=== PATIENT | male | born 1960 | race Caucasian/White ===

== ENCOUNTER 2022-09-22 15:56 | Outpatient (REF) | payer OTHER, SELFPAY ==
--- NOTE | ~2022-09-22 | XR_ITS ---
EXAMINATION: XR HAND, RIGHT CLINICAL INFORMATION: Contusion of the finger COMPARISON: None TECHNIQUE: PA, lateral, and oblique views of the right hand. FINDINGS: Obliquely oriented fracture of the fourth digit middle phalanx. This does not appear to extend to the articulation. Slight radial displacement of the distal fragment. Soft tissue swelling at the fracture site. Joint spaces are maintained. Osteophytes at the first digit interphalangeal joint. XR/XR hand RT min 3V IMPRESSION: Obliquely oriented fracture of the fourth digit middle phalanx.
== END 2022-09-22 15:57 | disposition home or self-care (01) ==
LOC: HO.HMGCX 15:56
PROVIDERS: Visit Provider Internal Medicine
DX: S62.624A Displaced fracture of middle phalanx of right ring finger, initial encounter for closed fracture (principal)
CPT/HCPCS: 73130

== ENCOUNTER 2022-10-16 10:36 | Outpatient (REF) | payer OTHER, SELFPAY ==
--- NOTE | ~2022-10-16 | XR_ITS ---
EXAMINATION: XR HAND, RIGHT CLINICAL INFORMATION: Pain COMPARISON: Radiographs dated 09/22/2022. TECHNIQUE: PA, lateral, and oblique views of the right hand. FINDINGS: There is stable alignment of an oblique, mildly displaced fracture of the distal shaft and head of the right fourth middle phalanx. There does not appear to be intra-articular extension of the fracture line. No new callus formation is seen. There is adjacent mild soft tissue swelling. No foreign body is seen. XR/XR hand RT min 3V IMPRESSION: There is stable alignment of a mildly displaced oblique fracture of the right fourth middle phalanx.
== END 2022-10-16 10:37 | disposition home or self-care (01) ==
LOC: HO.HOSX 10:36
PROVIDERS: PCP Nurse Practitioner Family; Visit Provider Physician Assistant
DX: S62.624A Displaced fracture of middle phalanx of right ring finger, initial encounter for closed fracture (principal)
CPT/HCPCS: 73130

== ENCOUNTER 2022-11-16 10:47 | Outpatient (REF) | payer OTHER, SELFPAY ==
--- NOTE | ~2022-11-16 | XR_ITS ---
EXAMINATION: XR HAND, RIGHT CLINICAL INFORMATION: Pain COMPARISON: Right hand x-rays 10/16/2022 TECHNIQUE: PA, lateral, and oblique views of the right hand. FINDINGS: Stable alignment of oblique fracture through the fourth middle phalanx. There has been only minimal interval callus formation. There is no overlying soft tissue swelling. Other visualized portions of the right hand are unremarkable. XR/XR hand RT min 3V IMPRESSION: Stable alignment of fourth middle phalanx fracture with only minimal interval callus formation.
== END 2022-11-16 10:48 | disposition home or self-care (01) ==
LOC: HO.HOSX 10:47
PROVIDERS: Visit Provider Physician Assistant
DX: S62.624D Displaced fracture of middle phalanx of right ring finger, subsequent encounter for fracture with routine healing (principal)
CPT/HCPCS: 73130

== ENCOUNTER 2022-12-04 11:22 | Outpatient (REF) | payer OTHER, SELFPAY ==
[2022-12-04 13:53] LABS: MANUAL DIFF FLAG NO
[2022-12-04 14:04] LABS: Basophils Absolute Auto 0.1 X10*3/uL (0.0-0.2); Basophils Percent Auto 0.9 % (0-2); Eosinophils Absolute Auto 0.2 X10*3/uL (0.0-0.4); Eosinophils Percent Auto 2.6 % (0-4); Hematocrit 44.4 % (42.0-52.0); Hemoglobin 14.8 g/dl (14.0-18.0); Imm Gran Abs Auto 0.02 X10*3/uL (0.00-0.03); Imm Gran Pct Auto 0.3 % (0.0-0.4); Lymphocytes Absolute Auto 2.1 X10*3/uL (1.2-4.9); Lymphocytes Percent Auto 27.6 % (20-40); Mean Corpuscular HGB Conc 33.3 g/dl (31.0-36.0); Mean Corpuscular Hemoglobin 30.9 pg (27.0-33.0); Mean Corpuscular Volume 92.7 fL (80.0-98.0); Mean Platelet Volume 10.5 fL (9.4-12.4); Monocytes Absolute Auto 0.7 X10*3/uL (0.1-1.2); Monocytes Percent Auto 8.7 % (2-11); Neutrophils Absolute Auto 4.5 x10*3/uL (2.0-8.3); Neutrophils Percent Auto 59.9 % (45-73); Platelet Count 251 X10*3/uL (160-400); Red Blood Count 4.79 X10*6/uL (4.60-5.80); Red Cell Distribution Width 12.8 % (11.0-16.0); White Blood Count 7.6 X10*3/uL (4.8-10.8)
[2022-12-04 14:23] LABS: Alanine Aminotransferase 20 U/L (0-40); Albumin Level 4.4 g/dL (3.5-5.0); Alkaline Phosphatase 69 U/L (39-117); Anion Gap 11 (12-20); Aspartate Amino Transferase 23 U/L (5-37); Bilirubin Total 0.9 mg/dL (0.0-1.0); Blood Urea Nitrogen 16 mg/dL (9-16); Calcium 9.9 mg/dL (8.4-10.2); Carbon Dioxide 27 mmol/L (22-29); Chloride 108 mmol/L (96-108); Cholesterol 196 mg/dL; Estimated Glomerular Filt Rate > 60; Glucose Random 91 mg/dL (60-115); HDL Cholesterol 62 mg/dL; LDL Cholesterol Calculated 123 mg/dl; Potassium 4.2 mmol/L (3.3-5.1); Sodium 142 mmol/L (135-145); Total Protein 7.3 g/dL (6.5-8.0); Triglycerides 58 mg/dL
[2022-12-04 14:40] LABS: PSA,Total (Free>4and<10) 1.18 ng/mL (0.00-4.00); TSH reflex Free T4 0.88 uIU/mL (0.32-4.0)
== END 2022-12-04 11:23 | disposition home or self-care (01) ==
LOC: HO.HMGCLDS 11:22
PROVIDERS: PCP Nurse Practitioner Family; Visit Provider Nurse Practitioner Family
DX: I10 Essential (primary) hypertension (principal); Z13.29 Encounter for screening for other suspected endocrine disorder; Z13.0 Encounter for screening for diseases of the blood and blood-forming organs and certain disorders involving the immune mechanism; Z13.220 Encounter for screening for lipoid disorders; Z12.5 Encounter for screening for malignant neoplasm of prostate
CPT/HCPCS: 36415; 80053; 80061; 84153; 84443; 85025

== ENCOUNTER 2022-12-28 13:56 | Outpatient (REF) | payer OTHER, SELFPAY ==
--- NOTE | ~2022-12-28 | XR_ITS ---
EXAMINATION: XR KNEE, BILATERAL, AP STANDING VIEW OF BOTH XR KNEE, LEFT, SUNRISE AND LATERAL VIEWS CLINICAL INFORMATION: Knee pain. COMPARISON: None available. TECHNIQUE: AP standing view of both knees. Lateral and sunrise views of the left knee. FINDINGS: AP standing views of both knees do not demonstrate any evidence of acute fracture or dislocation. The medial and lateral joint space compartments are maintained bilaterally. There is a bone island seen within the left proximal tibial metaphysis. Vascular calcification is present. Imaging of the left knee demonstrate an Insall-Salvati ratio of 1.4 which is consistent with patella rolly. However, imaging was not performed at 30 degree flexion of the knee and, therefore, the index may be artificially increased. The patellofemoral joint space is maintained. There is minimal spurring undersurface of the patella. There is a small knee effusion present. XR/XR knee LT 2V IMPRESSION: Question left patella rolly.
--- NOTE | ~2022-12-28 | XR_ITS ---
EXAMINATION: XR KNEE, BILATERAL, AP STANDING VIEW OF BOTH XR KNEE, LEFT, SUNRISE AND LATERAL VIEWS CLINICAL INFORMATION: Knee pain. COMPARISON: None available. TECHNIQUE: AP standing view of both knees. Lateral and sunrise views of the left knee. FINDINGS: AP standing views of both knees do not demonstrate any evidence of acute fracture or dislocation. The medial and lateral joint space compartments are maintained bilaterally. There is a bone island seen within the left proximal tibial metaphysis. Vascular calcification is present. Imaging of the left knee demonstrate an Insall-Salvati ratio of 1.4 which is consistent with patella rolly. However, imaging was not performed at 30 degree flexion of the knee and, therefore, the index may be artificially increased. The patellofemoral joint space is maintained. There is minimal spurring undersurface of the patella. There is a small knee effusion present. XR/XR knee standing BI IMPRESSION: Question left patella rolly.
== END 2022-12-28 13:57 | disposition home or self-care (01) ==
LOC: HO.HOSX 13:56
PROVIDERS: Visit Provider Physician Assistant
DX: M17.12 Unilateral primary osteoarthritis, left knee (principal); M25.561 Pain in right knee
CPT/HCPCS: 20610; 73560; 73565; J1040

== ENCOUNTER 2022-12-29 15:00 | Outpatient (RCR) | payer OTHER, SELFPAY ==
--- NOTE | 2022-12-01 15:13 | MHC.OT.EP ---
[address] [phone] Occupational Therapy Plan of Care Patient Name: Narendra Cook JR Date of Evaluation: 12/01/22 Diagnosis: D3 MP fx Pain Location: Right ring finger 0-6 5-6 end of work day Pain Score: 5 Pain Scale Used: Numeric (0 - 10) Aggravating Factors: Gripping Alleviating Factors: Heat Assessment: Pt 10 wks s/p right D4 MP fx. XR 11/16/22 shows stable alignment , healing fx. Pt is wearing an aluminum finger splint for protection as needed at work . Today he presents with a PIP jt and DIP jt contracture with continued low to moderate pain Pt will benefit from OT to progress ROM and right hand function Frequency and Duration: The patient will be seen 2 x wk x 6 wks Short Term Goals: Demo indep with self ROM ex as instructed Demo use of D4 and D5 holding small objects in palm PIP jt flexion to 90 deg DIP jt flexion to 45 deg Clerical Assigner Goals: Pain free right ring finger AROM Ring finger digit pad 1 cm to DPC Ring finger PIP jt ext to 5 deg Indep with HEP Quick DASH to < 10 lb Treatment Plan: Therapeutic Exercise Therapeutic Activity Home Exercise Program Splinting Patient Education ADL Training Paraffin Fluidotherapy MHP Cold Packs Electronically Signed By: Crystal Navarrete OT CHT CLT Please Sign and return to therapist. Thank you once again for your referral.
--- NOTE | 2022-12-29 15:36 | MHC.OT.DC ---
[address] [phone] F: [phone] Occupational Therapy Discharge Note Patient Name: Narendra Cook Provider: Vera Russell Diagnosis: D3 MP fx Date of Surgery: Date of Evaluation: 12/01/22 Date of Discharge: 12/29/22 Treatments to Date: 4 Cancellations to Date: 0 No Shows to Date: 0 Discharge Status: Achieved Goals Improved Function Independent with HEP Discharge Summary: Good inc in right hand pain and ROM . Ring finger .5- 1 cm to DPC , 0 cm with PROM and a ~ 20 deg PIP ext lag with mild tight ORL. PIP ext to neutral with PROM Pt is indep with his HEP and reports full right dominant hand use with some caution during heavy work tasks to avoid pain. Goals met. Electronically Signed By: Crystal Navarrete OT CHT CLT Reviewed/agree with student documentation: Therapist: Please Sign and return to therapist, thank you for your referral.
== END 2022-12-29 15:36 | disposition home or self-care (01) ==
LOC: HO.OT 15:00
PROVIDERS: PCP Nurse Practitioner Family; Visit Provider Physician Assistant
DX: S62.601D Fracture of unspecified phalanx of left index finger, subsequent encounter for fracture with routine healing (principal)
CPT/HCPCS: 97110; 97165

== ENCOUNTER 2023-01-11 10:25 | Outpatient (REF) | payer OTHER, SELFPAY ==
--- NOTE | ~2023-01-11 | XR_ITS ---
EXAMINATION: XR HAND, RIGHT CLINICAL INFORMATION: Right hand pain COMPARISON: 11/16/2022 TECHNIQUE: PA, lateral, and oblique views of the right hand. FINDINGS: Stable alignment of the obliquely oriented fracture of the 4th middle phalanx. Portions of the fracture are less conspicuous suggesting partial healing. Moderate osteoarthritis of the 1st interphalangeal joint. XR/XR hand RT min 3V IMPRESSION: Stable alignment of the 4th middle phalanx fracture with partial healing.
== END 2023-01-11 10:26 | disposition home or self-care (01) ==
LOC: HO.HOSX 10:25
PROVIDERS: Visit Provider Physician Assistant
DX: S62.604D Fracture of unspecified phalanx of right ring finger, subsequent encounter for fracture with routine healing (principal)
CPT/HCPCS: 73130

== ENCOUNTER 2023-02-01 07:14 | Outpatient (AMB) | payer OTHER, SELFPAY ==
[2023-02-01 07:30] VITALS: BP 140/76; PULSE 51; O2SAT 97; BMI 23.0
--- NOTE | 2023-02-01 07:30 | A.OFFPC_ITS ---
Vital Signs 02/01/23 07:30 Height 6 ft 3 in Weight 184 lb BMI 23.0 BP 140/76 H Blood Pressure Location Lt brachial Position Sitting Pulse 51 Pulse Source Pulse Oximeter Pulse Oximetry (%) 97 Oxygen Delivery Method Room Air Intake Visit Reasons: HTN , PE Allergies lisinopril Adverse Reaction (Intermediate, Verified 02/01/23 07:34) Cough indomethacin [From Indocin] Adverse Reaction (Mild, Verified 02/01/23 07:34) Vomiting Tobacco use date assessed: 02/01/23 Dental Screening Dental Screen Date: 02/01/23 Did you have a dental visit in the last 12 months?: Yes Did you have a dental problem in the last 6 months where you did not have access to dental care?: No Was dental information given to patient?: Patient has dentist HPI HPI Comments History of Present Illness Details 62- year old male new patient presents today to establish care.? Past medical history significant for hypertension, fracture right ring finger.? Review of the notes patient continues to follow with orthopedic for fracture right ring finger and osteoarthritis of left knee status post steroid injection. Patient presents today for physical exam. Patient denies CP,palpitations, SOB and syncope. Denies any acute concerns Colonoscopy:never had one completed; Referral to Gastroenterology entered. Patient states currently smoking 1 pack a day for greater than 20 years reviewed referral to thoracic surgery for lung cancer screening program. Patient declines at this time. Eye Exam: scheduled in July ? [facility] Medical History Full dentures Phlebitis Surgical History History of testicular surgery Hx of thumb surgery S/P left knee arthroscopy Family History Mother Lymphoma Father History of open heart surgery Social History Housing: Apartment Alcohol intake: current Alcohol intake frequency: a few times a week Alcohol type: hard liquor Patient Tobacco Use Status: Current everyday Tobacco user Tobacco use type: Cigarette Cigarette Packs Per Day: 1 Years Smoked: 40 Packs Per Year: 0 e-Cigarette/Vaping Use: Former Use Second Hand Smoke Exposure: Yes Current occupational status: employed 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 1. Little interest or pleasure in doing things: not at all 2. Feeling down, depressed, or hopeless: not at all 3. Trouble falling or staying asleep, or sleeping too much: not at all 4. Feeling tired or having little energy: not at all 5. Poor appetite or overeating: not at all 6. Feeling bad about yourself - or that you are a failure or have let yourself or your family down: not at all 7. Trouble concentrating on things, such as reading the newspaper or watching television: not at all 8. Moving or speaking so slowly that other people could have noticed. Or the opp osite - being so fidgety or restless that you have been moving around a lot more than usual: not at all 9. Thoughts that you would be better off or of hurting yourself in some way: not at all Total score: 0 Depression Screening Interpretation: Negative Source: Developed by Drs. Christopher Mckeon, Stefany Castro, Jose Barboza and colleagues, with an educational wilfredo from [employer]. Thrive Questionnaire Date Thrive assessed: 11/23/22 AUDIT C Alcohol Use Questionnaire (AUDIT-C) 1. How often do you have a drink containing alcohol?: Monthly or less 2. How many drinks containing alcohol do you have on a typical day when you are drinking?: 1 or 2 3. How often do you have six or more drinks on one occasion?: Never Total Score: 1 JAZ-7 AMB Questionnaire JAZ-7 Date JAZ - 7 assessed: 11/23/22 Source: Developed by Drs. Christopher Mckeon, Stefany Castro, Jose Barboza and colleagues, with an educational wilfredo from [employer]. Review of Systems Const Denies chills, Denies fatigue, Denies fever(s) and Denies poor appetite Eyes Denies no additional complaints ENT Reports Normal hearing present Card Denies chest pain, Denies syncope, Denies rapid heart rate and Denies dyspnea Resp Denies cough and Denies dyspnea GI Denies change in stool character, Denies constipation, Denies diarrhea, Denies nausea and Denies vomiting Denies dysuria, Denies urinary frequency and Denies urinary urgency Neuro Reports Normal hearing present, Denies confusion and Denies syncope Psych Denies confusion Endo Denies fatigue Physical exam (Primary Care) Vital Signs: Last Vital Signs Pulse 51 02/01/23 07:30 BP 140/76 H 02/01/23 07:30 Pulse Ox 97 02/01/23 07:30 Oxygen Delivery Method Room Air 02/01/23 07:30 BMI result Body Mass Index 23.0 Tobacco/Smoking Status: Tobacco use Status Tobacco use date assessed 02/01/23 02/01/23 07:36 Patient Tobacco Use Status Current everyday Tobacco 02/01/23 07:36 Tobacco use type Cigarette 02/01/23 07:36 e-Cigarette/Vaping Use Former Use 02/01/23 07:36 PHQ-9: PHQ-9 Score PHQ-9: Total score 0 02/01/23 07:39 Depression Screening Interpretation: Negative Thrive Assessment: Date of Thrive Assessment Date Thrive assessed 11/23/22 02/01/23 07:36 Const General: No confusion Orientation/consciousness: No confusion HENMT Head: Yes normocephalic and Yes atraumatic Ears: external ears normal and TM's normal bilaterally General nose exam: Normal external nose present and Normal nasal mucous membranes and turbinates present Face and sinus: Yes normal facial exam and Yes sinuses nontender Mouth: moist mucous membranes Throat: Yes tonsils normal Eyes Conjunctivae: conjunctivae normal Sclerae: sclerae normal Pupils: Equal, round and reactive pupils present and Pupils normal by confrontation EOM: EOMs intact bilaterally Direct Ophthalmoscopy: normal light reflex Neck Neck: Yes no lymphadenopathy and Yes supple Thyroid: Thyroid normal Chest Chest palpation & inspection: normal inspection of the chest Resp Effort & Inspection: normal respiratory effort Auscultation: clear to auscultation bilaterally, no crackles, no rhonchi and no wheezes Cardio Rate: regular rate Rhythm: regular rhythm Peripheral pulses: radial pulses present and dorsalis pedis present GI Inspection: Yes normal to inspection Palpation (GI): Soft to palpation, nontender and No hepatosplenomegaly present Auscultation: normoactive bowel sounds Skin General skin exam: no rashes or lesions noted Neuro General: No confusion Cranial nerves: Yes Equal, round and reactive pupils present and Yes Normal hearing present Cognition (Neuro): normal cognition Gait exam (Neuro): Normal gait present Motor exam (neuro): 5/5 motor strength present throughout Deep tendon reflexes (DTR's): Right brachioradialis reflex intensity grade: 2+, Left brachioradialis reflex intensity grade: 2+, Right patellar reflex intensity grade: 2+ and Left patellar reflex intensity grade: 2+ Extrem General: No edema Assessment and Plan Assessment & Plan (1) Hypertension: Code(s): I10 - Essential (primary) hypertension Plan: Continue on losartan 50 mg daily. Follow low-salt diet and exercise. B/p goal <140/90. Patient advised to check b/p periodically at home and keep log if above goal patient advised to call office to notify pcp. (2) Physical exam, annual: Code(s): Z00.00 - Encounter for general adult medical examination without abnormal findings Plan: Follow up in 1 year. Plan Follow up in 6 months Orders: Referrals Gastroenterology Referral Z12.11 - Encounter for screening for malignant neoplasm of colon Coding Level of Care Code Est Pt Prev Care 40-64y(95730) Diagnoses Hypertension I10 Physical exam, annual Z00.00
== END 2023-02-01 08:39 | disposition home or self-care (01) ==
PROVIDERS: PCP Nurse Practitioner Family; Visit Provider Nurse Practitioner Family
DX: I10 Essential (primary) hypertension (principal); Z00.00 Encounter for general adult medical examination without abnormal findings
CPT/HCPCS: 99396

== ENCOUNTER 2023-04-09 12:55 | Outpatient (AMB) | payer OTHER, SELFPAY ==
--- NOTE | 2023-04-09 13:09 | MHC.OFFVIS ---
Intake Vital Signs 04/09/23 13:11 Height 6 ft 3 in Weight 186 lb BMI 23.2 BP 171/70 H Blood Pressure Location Rt brachial Position Sitting Pulse 56 Intake Visit Reasons: Colonoscopy Screening Intake Note: Patient presents to in office visit today colonoscopy screening. CC: Patient reports doing well today and denies having any GI symptoms or concerns. Allergies lisinopril Adverse Reaction (Intermediate, Verified 04/09/23 13:15) Cough indomethacin [From Indocin] Adverse Reaction (Mild, Verified 04/09/23 13:15) Vomiting HPI Colonoscopy Screening HPI Details 62 year old? male with past medical history of hypertension, osteoarthritis is here today for pre colonoscopy screening.? Patient was sent to us by his PCP.? This is his first colonoscopy screening.? Patient denies any gastrointestinal symptoms in the past or at present.? Denies any personal or family history of gastrointestinal disease, colon polyps, or cancer.? Denies history of difficulty with sedation or anesthesia in the past.? Negative for history of sleep apnea.? Denies any history of cardiac, renal, pulmonary, or hepatic disease.?? No history of infectious? diseases like hepatitis A, B, C, HIV or tuberculosis.? Patient is not on any anticoagulation therapy. 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, 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, 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 Cognitive needs: No Hearing needs: No Vision needs: Yes Review of Systems Const Denies weight gain and Denies weight loss ENT Reports no additional complaints, Denies dysphagia and Denies odynophagia Card Reports no additional complaints Resp Reports no additional complaints GI Denies abdominal pain, Denies belching, Denies melena, Denies bloating, Denies change in bowel habits, Denies dysphagia, Denies excessive flatus, Denies dyspepsia, Denies heartburn, Denies diarrhea, Denies loose stools, Denies nausea, Denies odynophagia and Denies vomiting Reports no additional complaints Musc Reports no additional complaints Neuro Reports no additional complaints Psych Reports no additional complaints Endo Reports no additional complaints Physical Exam Vital Signs: Last Vital Signs Pulse 56 04/09/23 13:11 BP 171/70 H 04/09/23 13:11 BMI result Body Mass Index 23.2 Const General: healthy appearing, no acute distress and well developed Nutritional Appearance: well nourished Orientation/consciousness: patient oriented x3 HEENT Head: Yes normal to inspection, Yes normocephalic and Yes atraumatic Face and sinus: Yes normal facial exam Mouth: Normal oral and palatal mucosa present Throat: Yes posterior oropharynx normal, Yes tonsils normal and Yes uvula midline Eyes General: appearance normal, both eyes and all related structures Neck Neck: Yes normal visual inspection, Yes full ROM and Yes trachea midline Thyroid: Thyroid normal Resp Effort & Inspection: normal respiratory effort, able to speak in complete sentences, no tracheal deviation and symmetric chest movement Auscultation: clear to auscultation bilaterally Cardio Rate: regular rate Heart sounds: S1 normal heart sound present and S2 normal heart sound present GI Inspection: Yes normal to inspection and No distended Palpation (GI): Soft to palpation, not firm, nontender and No hepatosplenomegaly present Auscultation: normal bowel sounds General: Yes no CVA tenderness Back/Spine/Pelvis Back: no CVA tenderness Skin General skin exam: elasticity normal, turgor normal and dry skin Neuro General: patient oriented x3 Psych Appearance: grossly normal Mental Status: mental status grossly normal Speech and movement: Normal speech and movement present Assessment & Plan Assessment & Plan (1) Screen for colon cancer: Code(s): Z12.11 - Encounter for screening for malignant neoplasm of colon Plan: Patient denies any GI, cardiac or respiratory symptoms.? Denies any issues with anesthesia in the past.? Denies any history of sleep apnea.? No history infectious diseases in the past or present.? Not on any anticoagulation therapy.? No family or personal history of colon cancer or polyps.? Patient denies melena, hematochezia, unintentional weight loss or ribbon like stools.? Discussed at length the pre-procedure,? prep, diet & medications as well as what to expect prior, during and after the procedure.?? Stressed the importance of good bowel prep. ?Recommended the use of Vaseline or Calmoseptine OTC & baby wipes with bowel movements to promote comfort.? ?Patient verbalizes understanding and agrees to plan of care.? He was given the opportunity to ask questions and all questions answered.? We will see him after the procedure.? Coding Level of Care Code New Pt Level 3 (88338) Diagnoses Screen for colon cancer Z12.11 Time Spent (min) 40 Comment 30 minutes spent with patient and additional 10 minutes spent reviewing his records
[2023-04-09 13:11] VITALS: BP 171/70; PULSE 56; BMI 23.2
== END 2023-04-09 14:08 | disposition home or self-care (01) ==
PROVIDERS: PCP Nurse Practitioner Family; Visit Provider Nurse Practitioner Family
DX: Z01.818 Encounter for other preprocedural examination (principal); Z12.11 Encounter for screening for malignant neoplasm of colon
CPT/HCPCS: S0285

== ENCOUNTER → 2023-04-09 12:55 | Outpatient (BNVA) | payer OTHER, SELFPAY | PROVIDERS: PCP Nurse Practitioner Family; Visit Provider Nurse Practitioner Family ==

== ENCOUNTER 2023-04-20 12:19 | Outpatient (AMB) | payer OTHER, SELFPAY ==
[2023-04-20 14:09] VITALS: BP 170/90; PULSE 80; TEMP 36.7; O2SAT 98; BMI 23.2
--- NOTE | 2023-04-20 14:09 | MHC.OFFWIV ---
Intake Vital Signs 04/20/23 14:09 Height 6 ft 3 in Weight 186 lb BMI 23.2 BP 170/90 H Blood Pressure Location Lt brachial Position Sitting Pulse 80 Pulse Source Pulse Oximeter Temp 98.0 F Temp Source Temporal Artery Scan Pulse Oximetry (%) 98 Intake Visit Reasons: Lilly MAYEN [phone] Intake Note: pt is here for c/o possible shingles Patient Tobacco Use Status: Current everyday Tobacco user Allergies lisinopril Adverse Reaction (Intermediate, Verified 04/20/23 14:10) Cough indomethacin [From Indocin] Adverse Reaction (Mild, Verified 04/20/23 14:10) Vomiting Do you need a note to return to daycare/school/sports/work: Yes HPI EP, Lilly [phone] HPI Details 62-year-old male presents to the office for a sick visit. Patient has been diagnosed with shingles last week. Continues to have burning sensation in the affected area. Also would like to get a note. [facility] Medical History Full dentures Phlebitis Surgical History S/P left knee arthroscopy Hx of thumb surgery History of testicular surgery Family History Mother Lymphoma Father History of open heart surgery Social History Housing: Apartment Alcohol intake: current Alcohol intake frequency: a few times a week Alcohol type: hard liquor Patient Tobacco Use Status: Current everyday Tobacco user Tobacco use type: Cigarette Cigarette Packs Per Day: 1 Years Smoked: 40 e-Cigarette/Vaping Use: Former Use Second Hand Smoke Exposure: Yes Current occupational status: employed 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 No new lesions are present. Assessment & Plan Assessment & Plan (1) Post herpetic neuralgia: Code(s): B02.29 - Other postherpetic nervous system involvement Plan: Neurontin dosage has been increased to 300 mg twice a day. Note for work given. No further need of valacyclovir. Medications: New gabapentin 300 mg PO BID 30 caps 0RF Discontinued gabapentin Discontinued Reason: Doctor's Order 100 mg PO BID 15 days 30 caps 0RF B02.29 - Other postherpetic nervous system involvement Coding Level of Care Code Est Pt Level 3 (94993) Diagnoses Post herpetic neuralgia B02.29
== END 2023-04-20 15:18 | disposition home or self-care (01) ==
PROVIDERS: PCP Nurse Practitioner Family; Visit Provider Internal Medicine
DX: B02.29 Other postherpetic nervous system involvement (principal)
CPT/HCPCS: 99213

== ENCOUNTER 2023-05-10 08:48 | Outpatient (AMB) | payer OTHER, SELFPAY ==
--- NOTE | 2023-05-10 08:50 | MHC.PC.OV ---
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 Required: No Accompanied by: Self / Same As Patient Allergies lisinopril Adverse Reaction (Intermediate, Verified 05/10/23 08:52) Cough indomethacin [From Indocin] Adverse Reaction (Mild, Verified 05/10/23 08:52) Vomiting Tobacco use date assessed: 02/01/23 Dental Screening Dental Screen Date: 05/10/23 Did you have a dental visit in the last 12 months?: No Did you have a dental problem in the last 6 months where you did not have access to dental care?: No Was dental information given to patient?: Patient declined HPI HPI Comments History of Present Illness Details 62-year-old male past medical history significant for hypertension and osteoarthritis of left knee. Patient reports had shingles end of march. Patient reported rash to right chest, shoulder. Patient was seen in the walk-in clinic on 04/20/2023 for post herpetic neuralgia and was prescribed gabapentin 300 mg b.i.d.. Patient presents today for follow-up. Patient reports occasionally right arm burning, electric/ stabbing pain. Denies any need for refill on gabapentin at this time. Patient's blood pressure elevated office today 178/90, patient reports likely related to pain states he has not yet taking his losartan today. Patient advised to take his medication, follow low-salt diet. Patient advised to check blood pressure periodically at home after sitting down for 3-5 minutes report elevated blood pressures to office so necessary adjustments could be made on blood pressure medication. [facility] Medical History Full dentures Phlebitis Surgical History S/P left knee arthroscopy Hx of thumb surgery History of testicular surgery Family History Mother Lymphoma Father History of open heart surgery Social History Housing: Apartment Alcohol intake: current Alcohol intake frequency: a few times a week Alcohol type: hard liquor Patient Tobacco Use Status: Current everyday Tobacco user Tobacco use type: Cigarette Cigarette Packs Per Day: 1 Years Smoked: 40 e-Cigarette/Vaping Use: Former Use Second Hand Smoke Exposure: Yes service: No Current occupational status: employed 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 Christopher Mckeon, Stefany Castro, Jose Barboza and colleagues, with an educational wilfredo from [employer]. Review of Systems Const Denies chills, Denies fatigue, Denies fever(s) and Denies poor appetite Eyes Denies no additional complaints ENT Reports Normal hearing present Card Denies chest pain, Denies syncope, Denies rapid heart rate and Denies dyspnea Resp Denies cough and Denies dyspnea GI Denies change in stool character, Denies constipation, Denies diarrhea, Denies nausea and Denies vomiting Denies dysuria, Denies urinary frequency and Denies urinary urgency Neuro Reports Normal hearing present, Denies confusion and Denies syncope Psych Denies confusion Endo Denies fatigue Physical exam (Primary Care) Vital Signs: Last Vital Signs Pulse 61 05/10/23 08:51 BP 178/90 H 05/10/23 08:51 Pulse Ox 96 05/10/23 08:51 Oxygen Delivery Method Room Air 05/10/23 08:51 BMI result Body Mass Index 22.1 Tobacco/Smoking Status: Tobacco use Status Tobacco use date assessed 02/01/23 05/10/23 08:54 Patient Tobacco Use Status Current everyday Tobacco 05/10/23 08:54 Tobacco use type Cigarette 05/10/23 08:54 e-Cigarette/Vaping Use Former Use 05/10/23 08:54 Thrive Assessment: Date of Thrive Assessment Date Thrive assessed 11/23/22 05/10/23 08:54 Const General: No confusion Orientation/consciousness: No confusion HENMT Head: Yes normocephalic and Yes atraumatic Eyes Conjunctivae: conjunctivae normal Chest Chest palpation & inspection: normal inspection of the chest Resp Effort & Inspection: normal respiratory effort Auscultation: clear to auscultation bilaterally, no crackles, no rhonchi and no wheezes Cardio Rate: regular rate Rhythm: regular rhythm Heart sounds: S1 normal heart sound present and S2 normal heart sound present GI Inspection: Yes normal to inspection Neuro General: No confusion Cranial nerves: Yes Normal hearing present Extrem General: No edema Office Procedures Flu Questionnaire Does the patient have a severe egg allergy?: No Immunizations flu vacc [id number] 6mos up(PF) 60 mcg(15 mcgx4)/0.5 mL IM syringe Performing Provider: FRANK Ferguson [place] [facility] [facility] [place] [facility] Documented (not given) by: IRINEO Mohr on 05/10/23 09:27 Reason Not Given: Patient Refused Assessment and Plan Assessment & Plan (1) Post herpetic neuralgia: Code(s): B02.29 - Other postherpetic nervous system involvement Plan: Continue on gabapentin 300 mg b.i.d. (2) Hypertension: Code(s): I10 - Essential (primary) hypertension Plan: Continue on losartan 50 mg daily. Follow low-salt diet exercise. Patient advised to monitor blood pressures home after sitting down for 3-5 minutes and keep a log and report elevated blood pressures to office. Plan Keep scheduled follow-up in August Orders: Orders Influenza [id number] Immunization Today Z23 - Encounter for immunization Coding Level of Care Code Est Pt Level 3 (12116) Diagnoses Post herpetic neuralgia B02.29 Hypertension I10
[2023-05-10 08:51] VITALS: BP 178/90; PULSE 61; O2SAT 96; BMI 22.1
== END 2023-05-10 10:55 | disposition home or self-care (01) ==
PROVIDERS: PCP Nurse Practitioner Family; Visit Provider Nurse Practitioner Family
DX: I10 Essential (primary) hypertension (principal); B02.29 Other postherpetic nervous system involvement; Z23 Encounter for immunization
CPT/HCPCS: 99213

== ENCOUNTER 2023-09-06 11:51 | Day surgery (SDC) | payer OTHER, SELFPAY ==
--- NOTE | 2023-09-03 11:58 | P.CONAN_ITS ---
Documented by User: Santa Green NP 09/03/23 11:59 HPI - Anesthesia Eval Consult details Narrative: 63yo M for Colonoscopy PMFSH Active Problems Active Problems: All Active Problems (Updated 04/14/23 @ 13:55 by Javier Brown PA-C) Post herpetic neuralgia (Acute) Osteoarthritis of left knee (Acute) Hypertension (Acute) Fracture of phalanx of hand (Acute) Contusion of finger of right hand (Acute) Past Medical History Medical History Full dentures Phlebitis Family History Family History Mother Lymphoma Father History of open heart surgery Surgical History Surgical History S/P left knee arthroscopy Hx of thumb surgery History of testicular surgery Social History Social History Housing: Apartment Alcohol intake: current Alcohol intake frequency: a few times a week Alcohol type: hard liquor Patient Tobacco Use Status: Current everyday Tobacco user Tobacco use type: Cigarette Cigarette Packs Per Day: 1 Years Smoked: 40 e-Cigarette/Vaping Use: Former Use Second Hand Smoke Exposure: Yes Advance Directives: No Advance Directives Information Provided: Yes service: No Current occupational status: employed 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, 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, 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 Current occupational exposures/hazards: No Cognitive needs: No Hearing needs: No Vision needs: Yes Meds Allergies Allergy/AdvReac Type Severity Reaction Status Date / Time lisinopril AdvReac Intermediate Cough Verified 05/10/23 08:52 indomethacin [From Indocin] AdvReac Mild Vomiting Verified 05/10/23 08:52 Assessment and Plan Assessment Anesthesia Assessment: Chart Reviewed Documented by User: Monie Clements MD 09/06/23 13:19 [facility] Past Medical History Medical History Full dentures Phlebitis Family History Family History Mother Lymphoma Father History of open heart surgery Family history of problems with anesthesia: No Surgical History Surgical History S/P left knee arthroscopy Hx of thumb surgery History of testicular surgery History of Problems with Anesthesia: No Social History Social History Housing: Apartment Alcohol intake: current Alcohol intake frequency: a few times a week Alcohol type: hard liquor Patient Tobacco Use Status: Current everyday Tobacco user Tobacco use type: Cigarette Cigarette Packs Per Day: 1 Years Smoked: 40 e-Cigarette/Vaping Use: Former Use Second Hand Smoke Exposure: Yes Advance Directives: No Advance Directives Information Provided: Yes service: No Current occupational status: employed 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, 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, 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 Current occupational exposures/hazards: No Cognitive needs: No Hearing needs: No Vision needs: Yes Meds Allergies Allergy/AdvReac Type Severity Reaction Status Date / Time lisinopril AdvReac Intermediate Cough Verified 05/10/23 08:52 indomethacin [From Indocin] AdvReac Mild Vomiting Verified 05/10/23 08:52 Exam Airway Mallampati Class: I (edentulous) TM Dist: >3cm Neck ROM: Full Heart: rrr Lungs: cta Assessment and Plan Assessment Anesthesia Assessment: Anesthesia Plan Discussed Final Anesthetic Review Family History of Problems with Anesthesia: No History of Problems with Anesthesia: No NPO: Yes ASA Class: II Final Preanesthetic Review: No Changes in Pt Med Stat, Meds/Allgs Chart Reviewed and Consent Obtained/Reviewed Patient Risk: Low Procedure Risk: Low Anesthetic Plan Anesthetic Plan: MAC: Disposition: Standard PACU
--- NOTE | 2023-09-06 13:08 | MHC.SHP ---
Pre-Procedural Eval Section A - 24 Hr Update-Section A only Date of Service: 09/06/23 The patient is an INPATIENT: No The patient has been examined within 24 hours of the surgical procedure. The History & Physical has been completed within 30 days and I have reviewed it.: No Section B - Complete if H&P > 30 days Chief Complaint: Colon cancer screening Relevant Family History (Specify if Yes): No Relevant Social History: Tobacco Use Present Medications: see Short Stay Collaborative assessment Medical History: Significant History (Full dentures Phlebitis) History of Previous Operations: Relevant previous surgery/procedure and date(s) (S/P left knee arthroscopy Hx of thumb surgery History of testicular surgery) Allergies: Allergies Allergy/AdvReac Type Severity Reaction Status Date / Time lisinopril AdvReac Intermediate Cough Verified 05/10/23 08:52 indomethacin [From Indocin] AdvReac Mild Vomiting Verified 05/10/23 08:52 Review of Systems Sugical H&P ROS: Negative: Constitution, Cardiovascular, Respiratory and Gastrointestinal Exam Surgical H&P Exam: Normal: Heart, Normal: Lungs, Normal: Extremities and Normal: Abdomen Plan Diagnosis/Plan: Unchanged I have reviewed the history and physical and performed a pertinent physical examination on my patient. No changes have occurred unless specified. Time Spent With Patient Time: Total time managing care of this patient today ____ minutes.
[2023-09-06 13:13] VITALS: BMI 22.0
[2023-09-06 13:17] VITALS: BMI 22.0
[2023-09-06] MEDS: Lactated Ringers 1,000 ML 100 ML IVCONT (13:30)
--- NOTE | 2023-09-06 14:42 | W.PM.OPN ---
Operative Note Operative Note Date of Service: 09/06/23 Narrative: COLONOSCOPY TILL CECUM WITH BIOPSIES, SNARE POLYPECTOMY AND HEMOCLIP PLACEMENT Pre-op diagnosis: Colon cancer screening - 1st colonoscopy Post-op diagnosis:? Colon polyps, diverticulosis, hemorrhoids Endoscopist:? Anthony Mullen MD Anesthesia:?MAC Consent: Indications for the procedure and potential complications of bleeding, perforation, reaction to medications and missed diagnosis were discussed with the patient and informed consent was obtained. Instrument: Olympus PCF H 190 L variable stiffness pediatric colonoscope Monitoring: Vital signs and clinical assessment, intermittent blood pressure monitoring, continuous EKG monitoring, Pulse oximetry and Carbon Dioxide monitoring were done throughout the procedure. Please see anesthesia flowsheet. Colon withdrawl time was 25 minutes. Procedure: The patient was placed in the left lateral decubitis position and pre-procedure medications were administered. After a digital rectal examination of the ano-rectum, the video colonoscope was inserted into the rectum and advanced through the colon to the cecum. The colonoscope was slowly withdrawn in a retrograde panoramic fashion and the colon mucosa was carefully examined including a retroflexed view of the rectum. Findings and interventions are described below. Procedure Difficulty: Without difficulty Findings: Terminal Ileum: Not evaluated Cecum: Normal Ascending Colon: A 15 mm sessile polyp in the distal AC - removed with a hot snare. Polypectomy site was closed with 1 hemoclip. A 9-10 mm sessile polyp in the distal AC - removed with a hot snare Transverse Colon: Normal Descending Colon: Normal Sigmoid Colon: Moderate diverticulosis Rectum: A 9-10 mm diminutive appearing polyp on retroflexed exam - biopsies were obtained. Ano-rectum: Moderate internal hemorrhoids Colon preparation: Good after copious irrigation [place] Bowel Preparation Scale Right colon; 2 Transverse colon: 2 Left colon; 2 (0 = Unprepared colon segment with mucosa not seen due to solid stool that cannot be cleared. 1 = Portion of mucosa of the colon segment seen, but other areas of the colon segment not well seen due to staining, residual stool and/or opaque liquid. 2 = Minor amount of residual staining, small fragments of stool and/or opaque liquid, but mucosa of colon segment seen well. 3 = Entire mucosa of colon segment seen well with no residual staining, small fragments of stool or opaque liquid) Impression and Post Procedure Diagnosis: Colonoscopy Findings: Two medium sized polyps removed and one diminuitve appearing polyp was biopsied. Moderate diverticulosis seen in the sigmoid colon Moderate hemorrhoids on retroflexed exam. Plan: Await pathology results Patient has an appointment on 09/20/23 in the GI Clinic with ANH Villanueva . Repeat Colonoscopy interval based on path results - in 3-5 years if polyps are adenomatous and 10 years if polyps are hyperplastic. Above findings were reviewed with the patient and colon polyps and diverticulosis handouts were given in the discharge area
[2023-09-06 15:42] VITALS: BP 173/82; PULSE 47; RESP 16; TEMP 36.1; O2SAT 100
[2023-09-06 15:57] VITALS: BP 170/86; PULSE 49; RESP 16; TEMP 36.6; O2SAT 98
== END 2023-09-06 16:15 | disposition home or self-care (01) ==
PROVIDERS: Visit Provider Internal Medicine Gastroenterology
PROC: 0DJD8ZZ Inspection of Lower Intestinal Tract, Via Natural or Artificial Opening Endoscopic (ICD-10-PCS; CPT 45378; principal; 2023-09-06 13:00)
DX: Z12.11 Encounter for screening for malignant neoplasm of colon (principal); D12.2 Benign neoplasm of ascending colon; K62.1 Rectal polyp; K57.30 Diverticulosis of large intestine without perforation or abscess without bleeding; K64.8 Other hemorrhoids; I10 Essential (primary) hypertension; M17.12 Unilateral primary osteoarthritis, left knee; B02.29 Other postherpetic nervous system involvement; I80.3 Phlebitis and thrombophlebitis of lower extremities, unspecified; Z88.8 Allergy status to other drugs, medicaments and biological substances; Z97.2 Presence of dental prosthetic device (complete) (partial); Z98.890 Other specified postprocedural states; F17.210 Nicotine dependence, cigarettes, uncomplicated
CPT/HCPCS: 45385; 45380; 88305; J2704

== ENCOUNTER → 2023-09-06 11:51 | Outpatient (BNV) | payer OTHER, SELFPAY | PROVIDERS: Visit Provider Internal Medicine Gastroenterology | DX: Z12.11 Encounter for screening for malignant neoplasm of colon (principal); K63.5 Polyp of colon; K57.90 Diverticulosis of intestine, part unspecified, without perforation or abscess without bleeding; K64.8 Other hemorrhoids | CPT/HCPCS: 45380; 45385 ==

== ENCOUNTER 2023-09-20 10:37 | Outpatient (AMB) | payer OTHER, SELFPAY ==
--- NOTE | 2023-09-20 10:54 | A.OFFVIS_ITS ---
Intake Vital Signs 09/20/23 10:56 Height 6 ft 3 in Weight 184 lb BMI 23.0 BP 172/78 H Blood Pressure Location Lt brachial Position Sitting Pulse 58 Intake Visit Reasons: S/p colon Intake Note: Patient follow up for Colonoscopy results. Patient denies any GI issues. Radiographer Angiogram Required: No Accompanied by: Self / Same As Patient Allergies lisinopril Adverse Reaction (Intermediate, Verified 09/20/23 10:53) Cough indomethacin [From Indocin] Adverse Reaction (Mild, Verified 09/20/23 10:53) Vomiting Medication List - Last Reconciled 09/20/23 by Janice Delgado PA-C losartan 50 mg PO DAILY HPI HPI Comments History of Present Illness Details A 63 y/o male f/u after index screening colonoscopy with polypectomy- He tolerated procedure well Reviewed procedure report, pathology and recommendations [facility] Medical History (Updated 09/20/23 @ 11:17 by Janice Delgado PA-C) Full dentures Phlebitis Surgical History Hx of colonoscopy S/P left knee arthroscopy Hx of thumb surgery History of testicular surgery Family History Mother Lymphoma Father History of open heart surgery Social History Housing: Apartment Alcohol intake: current Alcohol intake frequency: a few times a week Alcohol type: hard liquor Patient Tobacco Use Status: Current everyday Tobacco user Tobacco use type: Cigarette Cigarette Packs Per Day: 1 Cigarettes Per Day: 20.0 Years Smoked: 40 e-Cigarette/Vaping Use: Former Use Second Hand Smoke Exposure: Yes service: No Current occupational status: employed 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, 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, 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 Current occupational exposures/hazards: No Cognitive needs: No Hearing needs: No Vision needs: Yes Review of Systems Const All systems reviewed & are unremarkable except as noted in HPI and below Denies chills, Denies fever(s) and Denies headache(s) ENT Denies headache(s) Card Denies chest pain, Denies rapid heart rate, Denies dyspnea and Denies dyspnea on exertion Resp Denies dyspnea and Denies dyspnea on exertion GI Denies abdominal pain and Denies heartburn Neuro Denies headache(s) Physical Exam Vital Signs: Last Vital Signs Pulse 58 09/20/23 10:56 BP 172/78 H 09/20/23 10:56 BMI result Body Mass Index 23.0 Const General: cooperative, healthy appearing and comfortable Orientation/consciousness: patient oriented x3 Limitations: no limitations Resp Effort & Inspection: normal respiratory effort and able to speak in complete sentences Auscultation: clear to auscultation bilaterally, no wheezes and diminished lung sounds Cardio Rate: regular rate Rhythm: regular rhythm Heart sounds: S1 normal heart sound present and S2 normal heart sound present Neuro General: patient oriented x3 Extrem General: Yes full ROM Psych Appearance: grossly normal Mental Status: mental status grossly normal Speech and movement: Normal speech and movement present Affect: Anxious affect present Attitude: cooperative Thought process: Normal thought process present Thought content: Normal thought content present Results Reviewed Results Reviewed: Findings: Terminal Ileum: Not evaluated Cecum: Normal Ascending Colon: A 15 mm sessile polyp in the distal AC - removed with a hot snare. Polypectomy site was closed with 1 hemoclip. A 9-10 mm sessile polyp in the distal AC - removed with a hot snare Transverse Colon: Normal Descending Colon: Normal Sigmoid Colon: Moderate diverticulosis Rectum: A 9-10 mm diminutive appearing polyp on retroflexed exam - biopsies were obtained. Ano-rectum: Moderate internal hemorrhoids Colon preparation: Good after copious irrigation [place] Bowel Preparation Scale Right colon; 2 Transverse colon: 2 Left colon; 2 (0 = Unprepared colon segment with mucosa not seen due to solid stool that c annot be cleared. 1 = Portion of mucosa of the colon segment seen, but other areas of the colon segment not well seen due to staining, residual stool and/or opaque liquid. 2 = Minor amount of residual staining, small fragments of stool and/or opaque liquid, but mucosa of colon segment seen well. 3 = Entire mucosa of colon segment seen well with no residual staining, small fragments of stool or opaque liquid) Impression and Post Procedure Diagnosis: Colonoscopy Findings: Two medium sized polyps removed and one diminuitve appearing polyp was biopsied. Moderate diverticulosis seen in the sigmoid colon Moderate hemorrhoids on retroflexed exam. Plan: Await pathology results Patient has an appointment on 09/20/23 in the GI Clinic with ANH Villanueva . Repeat Colonoscopy interval based on path results - in 3-5 years if polyps are adenomatous and 10 years if polyps are hyperplastic. Above findings were reviewed with the patient and colon polyps and divert iculosis handouts were given in the discharge area Name: Narendra Cook Jr Age/Sex: 63/M Attending: Anthony Mullen MD : 1960 Submitted by: Anthony Mullen MD Copies to: MR #: [id number] Status: [facility] Collected: 09/06/23 Location: [facility] Received: 09/07/23 Diagnosis A. Colon, ascending, polyps: Tubular adenomas (2 pieces); negative for high- grade dysplasia and carcinoma. B. Colon, rectal polyp: Hyperplastic polyp. Clinical History Pre-Op Dx: Screening Post-Op Dx: Colon polyps, diverticulosis, hemorrhoids Microscopic Description Microscopic sections reviewed. Material Received A. Ascending colon polyps B. Rectal polyp Gross Description Received in 2 parts. Part A: Received in formalin labeled ?ascending colon polyps? are several minute to 0.3 cm pale, morillo- white irregular tissue fragments, submitted in toto in a cassette labeled A. Part B: Received in formalin labeled ?rectal polyp? are 2 nielson-morillo irregular tissue fragments measuring less than 0.1 and 0.3 cm, submitted in toto in a cassette labeled B. CEDS NOTE: Unless otherwise stated, all tissue is formalin-fixed and paraffin- embedded. Some or all of the immunohistochemical tests reported herein may have been developed and their performance characteristics determined by [facility]. They have not been cleared or approved by the U.S. Food and Drug Administration (FDA). However, the FDA has determined that such clearance or approval is not necessary. This laboratory is certified under the Clinical Laboratory Improvement Amendments of 1988 (CLIA) as qualified to perform high complexity clinical laboratory testing. Electronically Signed By: Leatha Plummer 09/08/23 7029 Patient: Narendra Cook Jr Age/Sex: 63/M MR#: [id number] Page 1 of 1 Assessment & Plan Assessment & Plan (1) Colon adenomas: Code(s): D12.6 - Benign neoplasm of colon, unspecified Plan: repeat 3 year (2) Diverticulosis of colon: Code(s): K57.30 - Diverticulosis of large intestine without perforation or abscess without bleeding Plan: er protocol (3) Hemorrhoids: Code(s): K64.9 - Unspecified hemorrhoids Plan: avoid strain HFD if worsen- consider surg consult Patient Instructions: Agrees to see pcp for HTN- no sx 3 year recall colon-adenomas HFD avoid straining rectal cream ER protocol- diverticulosis/itis Call with concerns Coding Level of Care Code Est Pt Level 3 (27298) Diagnoses Colon adenomas D12.6 Diverticulosis of colon K57.30 Hemorrhoids K64.9
[2023-09-20 10:56] VITALS: BP 172/78; PULSE 58; BMI 23.0
== END 2023-09-20 11:30 | disposition home or self-care (01) ==
PROVIDERS: PCP Nurse Practitioner Family; Visit Provider Physician Assistant
DX: D12.6 Benign neoplasm of colon, unspecified (principal); K57.30 Diverticulosis of large intestine without perforation or abscess without bleeding; K64.9 Unspecified hemorrhoids
CPT/HCPCS: 99213

== ENCOUNTER → 2023-09-20 10:37 | Outpatient (BNVA) | payer OTHER, SELFPAY | PROVIDERS: PCP Nurse Practitioner Family; Visit Provider Physician Assistant ==

== ENCOUNTER 2023-10-27 08:58 | Outpatient (AMB) | payer OTHER, SELFPAY ==
--- NOTE | 2023-10-27 09:10 | A.OFFPC_ITS ---
Vital Signs 10/27/23 09:13 Height 6 ft 3 in Weight 184 lb 4 oz BMI 23.0 BP 150/80 H Blood Pressure Location Lt brachial Position Sitting Pulse 58 Pulse Source Pulse Oximeter Pulse Oximetry (%) 58 L Oxygen Delivery Method Room Air Intake Visit Reasons: high bp readings Intake Note: Patient is here to follow up on High blood pressure reading. Director Of Development Required: No Photographic Process Worker: Not Required per policy Accompanied by: Self / Same As Patient Allergies lisinopril Adverse Reaction (Intermediate, Verified 10/27/23 10:03) Cough indomethacin [From Indocin] Adverse Reaction (Mild, Verified 10/27/23 10:03) Vomiting Medication List - Last Reconciled 10/27/23 by Teto Blake MD losartan 100 mg PO DAILY Tobacco use date assessed: 10/27/23 Dental Screening Dental Screen Date: 10/27/23 Did you have a dental visit in the last 12 months?: No Did you have a dental problem in the last 6 months where you did not have access to dental care?: No Was dental information given to patient?: No (Dentures) HPI high bp readings HPI Details 63-year-old male presents to the office to discuss his medical condition. I am taking over his care, his primary care provider has left the practice. Patient reports that his blood pressure has been elevated. He is compliant with his medications. Elevated blood pressure was determined when he went for the colonoscopy and when he went to the photographic specialist. Reports no symptoms of headaches or blurred vision. [facility] Medical History (Updated 10/27/23 @ 10:08 by Teto Blake MD) Hypertension Tobacco use disorder Full dentures Phlebitis Surgical History Hx of colonoscopy S/P left knee arthroscopy Hx of thumb surgery History of testicular surgery Family History Mother Lymphoma Father History of open heart surgery Social History Housing: Apartment Alcohol intake: current Alcohol intake frequency: a few times a week Alcohol type: hard liquor Patient Tobacco Use Status: Current everyday Tobacco user Tobacco use type: Cigarette Cigarette Packs Per Day: 1 Cigarettes Per Day: 20.0 Years Smoked: 40 e-Cigarette/Vaping Use: Former Use Second Hand Smoke Exposure: Yes service: No Current occupational status: employed 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 1. Little interest or pleasure in doing things: not at all 2. Feeling down, depressed, or hopeless: not at all 3. Trouble falling or staying asleep, or sleeping too much: not at all 4. Feeling tired or having little energy: not at all 5. Poor appetite or overeating: not at all 6. Feeling bad about yourself - or that you are a failure or have let yourself or your family down: not at all 7. Trouble concentrating on things, such as reading the newspaper or watching television: not at all 8. Moving or speaking so slowly that other people could have noticed. Or the opposite - being so fidgety or restless that you have been moving around a lot more than usual: not at all 9. Thoughts that you would be better off or of hurting yourself in some way: not at all Total score: 0 Depression Screening Interpretation: Negative Depression Screening Done: Yes Source: Developed by Drs. Christopher Mckeon, Stefany Castro, Jose Barboza and colleagues, with an educational wilfredo from [employer] Thrive Questionnaire Date Thrive assessed: 10/27/23 I am a: Patient What is your living situation today?: I have a steady place to live Within the past 12 months, did the food you bought not last and you didn't have the money to get more?: Never true Within the past 12 months, did you worry whether your food would run out before you got money to buy more?: Never true Do you have trouble paying for medicines?: No Do you have trouble getting transportation to medical appointments?: No Do you have trouble paying your heating and electricity bill?: No Do you have trouble taking care of your child, family member or friend?: No Do you have trouble with day-to-day activities such as bathing, preparing meals, shopping, managing finances, etc.?: No Are you currently unemployed and looking for a job?: No Are you interested in more education?: No Currently or been in a relationship where the following occur: no concerns reported THRIVE Score: 0 AUDIT C Alcohol Use Questionnaire (AUDIT-C) 1. How often do you have a drink containing alcohol?: Monthly or less 2. How many drinks containing alcohol do you have on a typical day when you are drinking?: 1 or 2 Total Score: 1 JAZ-7 AMB Questionnaire JAZ-7 Date JAZ - 7 assessed: 10/27/23 Feeling nervous, anxious, or on edge: 0 = Not at all Not being able to stop or control worryin = Not at all Worrying too much about different things: 0 = Not at all Trouble relaxin = Not at all Being so restless that it is hard to sit still: 0 = Not at all Becoming easily annoyed or irritable: 0 = Not at all Feeling afraid as if something awful might happen: 0 = Not at all Total JAZ-7 score (0-4 normal; 5-9 mild; 10-14 moderate; 15-21 severe): 0 Source: Developed by Drs. Christopher Mckeon, Stefany Castro, Jose Barboza and colleagues, with an educational wilfredo from [employer] Physical exam (Primary Care) Vital Signs: Last Vital Signs Pulse 58 10/27/23 09:13 BP 150/80 H 10/27/23 09:13 Pulse Ox 58 L 10/27/23 09:13 Oxygen Delivery Method Room Air 10/27/23 09:13 Care Plan Goal for BP management: Elevated blood pressure. Medication dosage increased. BMI result Body Mass Index 23.0 Tobacco/Smoking Status: Tobacco use Status Tobacco use date assessed 10/27/23 10/27/23 09:17 Patient Tobacco Use Status Current everyday Tobacco 10/27/23 09:17 Tobacco use type Cigarette 10/27/23 09:17 e-Cigarette/Vaping Use Former Use 10/27/23 09:17 Are you ready to quit: Yes Tobacco cessation counseling provided: Yes PHQ-9: PHQ-9 Score PHQ-9: Total score 0 10/27/23 10:03 Depression Screening Interpretation: Negative Thrive Assessment: Date of Thrive Assessment Date Thrive assessed 10/27/23 10/27/23 09:17 Currently or been in a relationship where the following occur: no concerns reported Const General: cooperative and healthy appearing Nutritional Appearance: well nourished Orientation/consciousness: patient oriented x3 Limitations: no limitations HENMT Head: Yes normal to inspection Eyes General: appearance normal, both eyes and all related structures Neck Neck: Yes normal visual inspection Chest Chest palpation & inspection: normal palpation of entire chest wall Resp Effort & Inspection: normal respiratory effort Neuro General: patient oriented x3 Assessment and Plan Assessment & Plan (1) Hypertension: Code(s): I10 - Essential (primary) hypertension Plan: Losartan dosage increased to 100 mg once a day. Blood work has been ordered. Counseled on the importance of diet and exercise. (2) Tobacco use disorder: Code(s): F17.200 - Nicotine dependence, unspecified, uncomplicated Plan: Patient was counseled on the dangers of tobacco. 15 minutes spent. Rather than taking medications, patient prefers a slow taper. Orders: Orders Complete Blood Count no Diff Today I10 - Essential (primary) hypertension Lipid Panel Today I10 - Essential (primary) hypertension UA and rflx microscopic Today I10 - Essential (primary) hypertension Basic Metabolic Panel Today I10 - Essential (primary) hypertension Liver Panel Today I10 - Essential (primary) hypertension Thyroid Stimulating Hormone Today I10 - Essential (primary) hypertension Medications: New losartan 100 mg PO DAILY 90 tabs 1RF Discontinued losartan Discontinued Reason: Doctor's Order 50 mg PO DAILY 90 tabs 1RF I10 - Essential (primary) hypertension Coding Level of Care Code Est Pt Level 4 (70332) Diagnoses Hypertension I10 Tobacco use disorder F17.200
[2023-10-27 09:13] VITALS: BP 150/80; PULSE 58; O2SAT 58; BMI 23.0
== END 2023-10-27 10:02 | disposition home or self-care (01) ==
PROVIDERS: PCP Internal Medicine; Visit Provider Internal Medicine
DX: I10 Essential (primary) hypertension (principal); F17.200 Nicotine dependence, unspecified, uncomplicated
CPT/HCPCS: 99214

== ENCOUNTER 2023-10-28 09:11 | Outpatient (REF) | payer OTHER, SELFPAY ==
[2023-10-28 10:37] LABS: Hematocrit 45.5 % (42.0-52.0); Hemoglobin 15.5 g/dl (14.0-18.0); Mean Corpuscular HGB Conc 34.1 g/dl (31.0-36.0); Mean Corpuscular Hemoglobin 31.3 pg (27.0-33.0); Mean Corpuscular Volume 91.7 fL (80.0-98.0); Mean Platelet Volume 10.1 fL (9.4-12.4); Platelet Count 227 X10*3/uL (160-400); Red Blood Count 4.96 X10*6/uL (4.60-5.80); Red Cell Distribution Width 12.8 % (11.0-16.0); White Blood Count 6.8 X10*3/uL (4.8-10.8)
[2023-10-28 11:20] LABS: Alanine Aminotransferase 21 U/L (0-40); Alkaline Phosphatase 76 U/L (39-117); Anion Gap 8 (12-20); Aspartate Amino Transferase 24 U/L (5-37); Bilirubin Direct 0.3 mg/dL (0.0-0.5); Bilirubin Total 0.8 mg/dL (0.0-1.0); Blood Urea Nitrogen 16 mg/dL (9-16); Calcium 9.2 mg/dL (8.4-10.2); Carbon Dioxide 30 mmol/L (22-29); Chloride 107 mmol/L (96-108); Cholesterol 185 mg/dL (<200); Estimated Glomerular Filt Rate > 60; Glucose Random 98 mg/dL (60-115); HDL Cholesterol 66 mg/dL (>40); LDL Cholesterol Calculated 100 mg/dL (<100); Sodium 141 mmol/L (135-145); Total Protein 7.1 g/dL (6.5-8.0); Triglycerides 97 mg/dL (<150)
[2023-10-28 11:40] LABS: Thyroid Stimulating Hormone 0.92 uIU/mL (0.32-4.0)
[2023-10-28 12:49] LABS: Appearance Urine Clear; Color Urine Yellow; Glucose Urine UA Negative (Negative); Leukocyte Esterase Urine Negative (Negative); Nitrite Urine Negative (Negative); PH 5.5 (5.0-9.0); Urine Blood Negative (Negative); Urine Ketones Negative (Negative); Urine Protein Negative (Neg-Trace)
== END 2023-10-28 09:12 | disposition home or self-care (01) ==
LOC: HO.HMGCLDS 09:11
PROVIDERS: PCP Internal Medicine; Visit Provider Internal Medicine
DX: I10 Essential (primary) hypertension (principal)
CPT/HCPCS: 36415; 80048; 80061; 80076; 81003; 84443; 85027

== ENCOUNTER 2024-06-12 09:59 | Outpatient (AMB) | payer OTHER, SELFPAY ==
--- NOTE | 2024-06-12 10:05 | MHC.PC.OV ---
Vital Signs 06/12/24 10:06 Height 6 ft 3 in Weight 192 lb 6 oz BMI 24.0 BP 160/80 H Blood Pressure Location Lt brachial Position Sitting Pulse 63 Pulse Source Pulse Oximeter Pulse Oximetry (%) 97 Oxygen Delivery Method Room Air Intake Visit Reasons: RescheduleannualPE Intake Note: Patient is here today for a physical. Travel Attendants Required: No Greige Goods Examiner: Not Required per policy Accompanied by: Self / Same As Patient Allergies lisinopril Adverse Reaction (Intermediate, Verified 06/12/24 10:45) Cough indomethacin [From Indocin] Adverse Reaction (Mild, Verified 06/12/24 10:45) Vomiting Medication List - Last Reconciled 06/12/24 by Abeba Lee PA-C losartan 100 mg PO DAILY Tobacco use date assessed: 06/12/24 Dental Screening Dental Screen Date: 10/27/23 HPI HPI Comments History of Present Illness Details 63-year-old male presenting for his annual physical exam. Patient denies any acute complaints. Patient is currently on losartan for hyperlipidemia taking as prescribed. Patient denies needing refills at this time. Patient already received flu vaccine. Patient had a colonoscopy in 09/06/2023 where he had polyps, hemorrhoids and diverticulosis found. He reports he had his prostate checked also on 09/06/2023. Patient had an eye exam July 2023 is due for his next eye exam July 2024. 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 He is also taking care of his who has had seizures and strokes. Patient reports he is able to perform all his activities of daily living. He is still driving during the day and at night. He denies seeing any halos or any difficulty driving at night. Patient denies any additional complaints or concerns at this time. [facility] Medical History (Updated 06/12/24 @ 10:52 by Abeba Lee PA-C) Hypertension Tobacco use disorder Full dentures Phlebitis Surgical History (Updated 06/12/24 @ 10:49 by Abeba Lee PA-C) Hx of colonoscopy (~08/2023) S/P left knee arthroscopy Hx of thumb surgery History of testicular surgery Family History Mother Lymphoma Father History of open heart surgery Social History (Reviewed 06/12/24 @ 10:05 by JOSE Olvera Housing: Apartment Alcohol intake: current Alcohol intake frequency: a few times a week Alcohol type: hard liquor Patient Tobacco Use Status: Current everyday Tobacco user Tobacco use type: Cigarette Cigarette Packs Per Day: 1 Cigarettes Per Day: 20.0 Years Smoked: 40 e-Cigarette/Vaping Use: Former Use Second Hand Smoke Exposure: Yes service: No Current occupational status: employed 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 Christopher Mckeon, Stefany Castro, Jose Barboza and colleagues, with an educational wilfredo from [employer]. Review of Systems Const All systems reviewed & are unremarkable except as noted in HPI and below Physical exam (Primary Care) Vital Signs: Last Vital Signs Pulse 63 06/12/24 10:06 BP 160/80 H 06/12/24 10:06 Pulse Ox 97 06/12/24 10:06 Oxygen Delivery Method Room Air 06/12/24 10:06 BMI result Body Mass Index 24.0 Tobacco/Smoking Status: Tobacco use Status Tobacco use date assessed 06/12/24 06/12/24 10:12 Patient Tobacco Use Status Current everyday Tobacco 06/12/24 10:12 Tobacco use type Cigarette 06/12/24 10:12 e-Cigarette/Vaping Use Former Use 06/12/24 10:12 Thrive Assessment: Date of Thrive Assessment Date Thrive assessed 10/27/23 06/12/24 10:12 Const Other: Appearance: Alert. Oriented X3. No acute distress. Head: Normal external exam. Normocephalic. Atraumatic. Eyes: Conjunctiva and sclera normal. Eyelids normal. ENT: MMM. Normal voice. Neck: Normal inspection. Neck supple. FROM. No adenopathy. Thyroid Normal. No meningeal signs. No neck mass noted. CVS: Normal heart rate and rhythm. Heart sound normal. Pulses normal throughout. No murmurs/rales/gallops. Respiratory: No respiratory distress. Painless inspiration. Breath sounds normal. No wheezes/rales/rhonchi noted. Chest nontender. No crepitus is noted. No accessory muscle usage noted or decreased air movement noted. No signs of trauma. Abdomen: Soft and nontender. Nondistended. No guarding. No rigidity. Bowel sounds normal in all 4 quadrants. No distention noted. No organomegaly noted. No visible injury noted. No rebound tenderness. Back: Full range of motion noted. Skin: Skin warm and dry. Normal skin color. Normal skin turgor. No rashes/lesions/lacerations noted. Extremities: No lower extremity edema. No calf tenderness is noted. Extremities exhibit normal range of motion and nontender. Neuro: Oriented X 3. Moving all extremities. Normal steady gait. No focal neuro deficits noted. Vascular: + radial pulses b/l. Normal cap refill. No cyanosis noted. Normal reflexes. Office Procedures Flu Questionnaire Does the patient have a severe egg allergy?: No Does the patient have severe life threatening allergies?: No Does the patient have a fever or illness today?: No Has the patient ever had Guillain-[place] Syndrome?: No Has the patient ever had any past reaction to a flu shot?: No Immunizations Fluarix Triv [id number] (PF) 45 mcg (15 mcg x 3)/0.5 mL IM syringe Performing Provider: Teto Blake MD [facility] Administered by: Mikayla Del Castillo LPN on 06/12/24 10:23 Dose Route Admin Location Dispensed Lot Number Expiration Date [employer] In[employer] 0.5 mL IM Left Deltoid 0.5 mL [id number] 01/08/25 [id number] Accountable VIS Given Date VIS Provided VIS Publication Date 06/12/24 Single Vaccine 21 Eligibility Eligibility Date Funding Source Not [facility] Eligible 06/12/24 Private Coding Level of Care Code Est Pt Prev Care 40-64y(19063) Diagnoses Annual physical exam Z00.00 Tobacco use disorder F17.200 Hyperlipidemia LDL goal <100 E78.5 Assessment & Plan Assessment & Plan (1) Annual physical exam: Code(s): Z00.00 - Encounter for general adult medical examination without abnormal findings Category: Medical Plan: Patient here for annual physical exam. Patient has a normal physical exam. Patient to return in 3-6 months for routine visit. (2) Tobacco use disorder: Code(s): F17.200 - Nicotine dependence, unspecified, uncomplicated Category: Medical Plan: Discussed with patient about smoking cessation. (3) Hyperlipidemia LDL goal <100: Code(s): E78.5 - Hyperlipidemia, unspecified Category: Medical Plan: LDL 100 ON 10/28/2023. Patient currently on losartan. Condition is stable. Plan 63-year-old male presenting for annual physical exam. Patient will need eye exam July 2024. Patient will need repeat fasting labs. Patient to follow-up in 3-6 months. Orders: Orders Influenza [id number] Immunization Today Z23 - Encounter for immunization
[2024-06-12 10:06] VITALS: BP 160/80; PULSE 63; O2SAT 97; BMI 24.0
== END 2024-06-12 10:58 | disposition home or self-care (01) ==
PROVIDERS: PCP Internal Medicine; Visit Provider Physician Assistant Medical
DX: Z00.00 Encounter for general adult medical examination without abnormal findings (principal); F17.200 Nicotine dependence, unspecified, uncomplicated; E78.5 Hyperlipidemia, unspecified

== ENCOUNTER → 2024-06-12 09:59 | Outpatient (BNVA) | payer OTHER, SELFPAY | PROVIDERS: PCP Internal Medicine; Visit Provider Internal Medicine | DX: Z00.00 Encounter for general adult medical examination without abnormal findings (principal); Z23 Encounter for immunization; E78.5 Hyperlipidemia, unspecified; F17.210 Nicotine dependence, cigarettes, uncomplicated | CPT/HCPCS: 90471; 90656 ==

== ENCOUNTER 2024-12-28 13:31 | Outpatient (AMB) | payer OTHER, SELFPAY ==
--- NOTE | 2024-12-28 13:39 | A.OFFPC_ITS ---
Vital Signs 12/28/24 13:43 Height 6 ft 3 in Weight 186 lb 8 oz BMI 23.3 BP 130/70 Blood Pressure Location Lt brachial Position Sitting Pulse 87 Pulse Source Pulse Oximeter Temp 97.1 F Temp Source Temporal Artery Scan Pulse Oximetry (%) 97 Oxygen Delivery Method Room Air Intake Visit Reasons: follow up Intake Note: Patient is here to follow up on HLD, HTN. 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 Required: No Laboratory Machinist: Not Required per policy Accompanied by: Self / Same As Patient Allergies lisinopril Adverse Reaction (Intermediate, Verified 06/12/24 10:45) Cough indomethacin (From Indocin) Adverse Reaction (Mild, Verified 06/12/24 10:45) Vomiting Tobacco use date assessed: 12/28/24 Fall risk assessment: No Falls in past year Last assessed Fall Risk: 12/28/24 Dental Screening Dental Screen Date: 12/28/24 Did you have a dental visit in the last 12 months?: No Did you have a dental problem in the last 6 months where you did not have access to dental care?: No Was dental information given to patient?: Patient has dentist [facility] Medical History (Updated 06/12/24 @ 10:52 by Abeba Lee PA-C) Hypertension Tobacco use disorder Full dentures Phlebitis Surgical History Hx of colonoscopy (~08/2023) S/P left knee arthroscopy Hx of thumb surgery History of testicular surgery Family History Mother Lymphoma Father History of open heart surgery Social History Housing: Apartment Alcohol intake: current Alcohol intake frequency: a few times a week Alcohol type: hard liquor Patient Tobacco Use Status: Current everyday Tobacco user Tobacco use type: Cigarette Cigarette Packs Per Day: 1 Cigarettes Per Day: 20.0 Years Smoked: 40 e-Cigarette/Vaping Use: Former Use Second Hand Smoke Exposure: Yes service: No Current occupational status: employed 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 1. Little interest or pleasure in doing things: not at all 2. Feeling down, depressed, or hopeless: not at all 3. Trouble falling or staying asleep, or sleeping too much: not at all 4. Feeling tired or having little energy: not at all 5. Poor appetite or overeating: not at all 6. Feeling bad about yourself - or that you are a failure or have let yourself or your family down: not at all 7. Trouble concentrating on things, such as reading the newspaper or watching television: not at all 8. Moving or speaking so slowly that other people could have noticed. Or the opposite - being so fidgety or restless that you have been moving around a lot more than usual: not at all 9. Thoughts that you would be better off or of hurting yourself in some way : not at all Total score: 0 Depression Screening Interpretation: Negative Depression Screening Done: Yes Source: Developed by Drs. Christopher Mckeon, Stefany Castro, Jose Barboza and colleagues, with an educational wilfredo from [employer]. Thrive Questionnaire Date Thrive assessed: 12/28/24 I am a: Patient What is your living situation today?: I have a steady place to live Within the past 12 months, did the food you bought not last and you didn't have the money to get more?: Never true Within the past 12 months, did you worry whether your food would run out before you got money to buy more?: Never true Do you have trouble paying for medicines?: No Do you have trouble getting transportation to medical appointments?: No Do you have trouble paying your heating and electricity bill?: No Do you have trouble taking care of your child, family member or friend?: No Do you have trouble with day-to-day activities such as bathing, preparing meals, shopping, managing finances, etc.?: No Are you currently unemployed and looking for a job?: No Are you interested in more education?: No Please select the resources that you would like help with: None Currently or been in a relationship where the following occur: No concerns reported THRIVE Score: 0 AUDIT C Alcohol Use Questionnaire (AUDIT-C) 1. How often do you have a drink containing alcohol?: Monthly or less 2. How many drinks containing alcohol do you have on a typical day when you are drinking?: 1 or 2 3. How often do you have six or more drinks on one occasion?: Never Total Score: 1 JAZ-7 AMB Questionnaire JAZ-7 Date JAZ - 7 assessed: 12/28/24 Feeling nervous, anxious, or on edge: 0 = Not at all Not being able to stop or control worryin = Not at all Worrying too much about different things: 0 = Not at all Trouble relaxin = Not at all Being so restless that it is hard to sit still: 0 = Not at all Becoming easily annoyed or irritable: 0 = Not at all Feeling afraid as if something awful might happen: 0 = Not at all Total JAZ-7 score (0-4 normal; 5-9 mild; 10-14 moderate; 15-21 severe): 0 Source: Developed by Drs. Christopher Mckeon, Stefany Castro, Jose Barboza and colleagues, with an educational wilfredo from [employer]. Physical exam (Primary Care) Vital Signs: Last Vital Signs Temp 97.1 F 12/28/24 13:43 Pulse 87 12/28/24 13:43 BP 130/70 12/28/24 13:43 Pulse Ox 97 12/28/24 13:43 Oxygen Delivery Method Room Air 12/28/24 13:43 BMI result Body Mass Index 23.3 Tobacco/Smoking Status: Tobacco use Status Tobacco use date assessed 12/28/24 12/28/24 13:48 Patient Tobacco Use Status Current everyday Tobacco 12/28/24 13:48 Tobacco use type Cigarette 12/28/24 13:48 e-Cigarette/Vaping Use Former Use 12/28/24 13:48 PHQ-9: PHQ-9 Score PHQ-9: Total score 0 12/28/24 13:48 Depression Screening Interpretation: Negative Thrive Assessment: Date of Thrive Assessment Date Thrive assessed 12/28/24 12/28/24 13:48 Currently or been in a relationship where the following occur: No concerns reported Advance Care Planning discussion: Exists, not on file Date of discussion: 12/28/24 Who was present: Patient Forms completed: Health Care Proxy and MOLST Time spent: 1-15 minutes, not on file Actual minutes spent: 5 Coding Level of Care Code Est Pt Level 4 (99012) Complex EM visit Add On G2211 Diagnoses Hypertension I10 Hyperlipidemia LDL goal <100 E78.5 Tobacco use disorder F17.200 Additional Codes Vital Signs *Quality* - Advance Care Planning discussion: Exists, not on file ([id number]) Vital Signs *Quality* - Time spent: 1-15 minutes, not on file ([id number]) Assessment & Plan Assessment & Plan (1) Hypertension: Code(s): I10 - Essential (primary) hypertension Category: Medical Plan: BP is in range. Continue meds at same dosage. (2) Hyperlipidemia LDL goal <100: Code(s): E78.5 - Hyperlipidemia, unspecified Category: Medical Plan: LDL is in range with out statins. Fasting bw ordered today. (3) Tobacco use disorder: Code(s): F17.200 - Nicotine dependence, unspecified, uncomplicated Category: Medical Plan: Counselling to quit smoking done. Plan History of Present Illness - The patient is a 64-year-old male presenting with a routine check-up and management of ongoing medication effects. - Reports increased urinary frequency due to a second medication taken early in the morning. - Underwent a colonoscopy as part of preventative care. - Smokes approximately one pack of cigarettes daily, with efforts to cut back. - Has a healthcare proxy with his as the designated proxy. Social History - Tobacco use: Smokes about a pack a day, attempting to reduce consumption. Review of Systems - Genitourinary: Reports increased urinary frequency due to medication. - General: Denies any other health concerns. Physical Exam General: Cooperative and healthy appearing Nutritional Appearance: Well nourished Orientation/consciousness: Patient oriented x3 Limitations: No limitations Head: Normal to inspection General: Appearance normal, both eyes and all related structures Neck: Normal visual inspection Chest: Normal palpation of entire chest wall Respiratory: Smokes about a pack a day ormal respiratory effort Neurology: Patient oriented x3 Results - Labs: Blood work and PSA ordered, to be done fasting. Plan 1. Increased Urinary Frequency Due To Medication - Plan to continue monitoring symptoms and adjust medication timing if necessary. 2. Tobacco Use - Encouraged to continue reducing tobacco consumption. 3. Preventative Care: Colonoscopy - Colonoscopy already completed as part of routine screening. Discussion Notes During the visit, we discussed the patient's increased urinary frequency due to medication and advised monitoring symptoms and possibly adjusting the timing of medication intake. We also reviewed the patient's tobacco use and encouraged continued reduction. Preventative care measures, including a completed colonoscopy, were acknowledged. Blood work and PSA were ordered for further evaluation. Patient Instructions - Continue taking medications as prescribed and monitor any changes in urinary frequency. - Attempt to further reduce tobacco use. - Complete fasting blood work and PSA as scheduled. Orders: Orders Complete Blood Count no Diff Today E78.5 - Hyperlipidemia, unspecified, I10 - Essential (primary) hypertension Basic Metabolic Panel Today E78.5 - Hyperlipidemia, unspecified, I10 - Essential (primary) hypertension UA and rflx microscopic Today E78.5 - Hyperlipidemia, unspecified, I10 - Essential (primary) hypertension Lipid Panel Today E78.5 - Hyperlipidemia, unspecified, I10 - Essential (primary) hypertension Liver Panel Today E78.5 - Hyperlipidemia, unspecified, I10 - Essential (primary) hypertension Thyroid Stimulating Hormone Today E78.5 - Hyperlipidemia, unspecified, I10 - Essential (primary) hypertension
[2024-12-28 13:43] VITALS: BP 130/70; PULSE 87; TEMP 36.2; O2SAT 97; BMI 23.3
== END 2024-12-28 14:04 | disposition home or self-care (01) ==
PROVIDERS: PCP Internal Medicine; Visit Provider Internal Medicine
DX: I10 Essential (primary) hypertension (principal); E78.5 Hyperlipidemia, unspecified; F17.200 Nicotine dependence, unspecified, uncomplicated; Z00.00 Encounter for general adult medical examination without abnormal findings

== ENCOUNTER → 2024-12-28 13:31 | Outpatient (BNVA) | payer OTHER, SELFPAY | PROVIDERS: PCP Internal Medicine; Visit Provider Internal Medicine ==

== ENCOUNTER 2025-01-02 08:19 | Outpatient (REF) | payer OTHER, SELFPAY ==
[2025-01-02 10:08] LABS: Hemoglobin 15.3 g/dl (14.0-18.0); Mean Corpuscular Hemoglobin 31.4 pg (27.0-33.0); Mean Corpuscular Volume 92.2 fL (80.0-98.0); Mean Platelet Volume 10.4 fL (9.4-12.4); Platelet Count 259 X10*3/uL (160-400); Red Blood Count 4.88 X10*6/uL (4.60-5.80); Red Cell Distribution Width 12.8 % (11.0-16.0); White Blood Count 7.7 X10*3/uL (4.8-10.8)
[2025-01-02 10:28] LABS: Alanine Aminotransferase 26 U/L (0-40); Albumin Level 4.3 g/dL (3.5-5.0); Alkaline Phosphatase 68 U/L (39-117); Anion Gap 12 (12-20); Aspartate Amino Transferase 32 U/L (5-37); Bilirubin Direct 0.2 mg/dL (0.0-0.5); Bilirubin Total 0.7 mg/dL (0.0-1.0); Blood Urea Nitrogen 15 mg/dL (9-16); Calcium 9.6 mg/dL (8.4-10.2); Carbon Dioxide 28 mmol/L (22-29); Chloride 105 mmol/L (96-108); Cholesterol 188 mg/dL (<200); Estimated Glomerular Filt Rate > 60; Glucose Random 101 mg/dL (60-115); HDL Cholesterol 52 mg/dL (>40); LDL Cholesterol Calculated 110 mg/dL (<100); Sodium 141 mmol/L (135-145); Total Protein 7.1 g/dL (6.5-8.0); Triglycerides 131 mg/dL (<150)
[2025-01-02 10:31] LABS: Appearance Urine Clear; Color Urine Dark Yellow; Glucose Urine UA Negative (Negative); Leukocyte Esterase Urine Negative (Negative); Nitrite Urine Negative (Negative); PH 5.5 (5.0-9.0); Specific Gravity - Urine >= 1.030 (1.005-1.025); Urine Blood Negative (Negative); Urine Ketones Trace mg/dL (Negative); Urine Protein Negative (Neg-Trace)
[2025-01-02 10:48] LABS: Thyroid Stimulating Hormone 1.47 uIU/mL (0.32-4.0)
== END 2025-01-02 08:20 | disposition home or self-care (01) ==
LOC: HO.HMGCLDS 08:19
PROVIDERS: PCP Internal Medicine; Visit Provider Internal Medicine
DX: I10 Essential (primary) hypertension (principal); E78.5 Hyperlipidemia, unspecified
CPT/HCPCS: 36415; 80048; 80061; 80076; 81003; 84443; 85027

== ENCOUNTER 2025-06-21 14:23 | Outpatient (AMB) | payer OTHER, SELFPAY ==
--- NOTE | 2025-06-21 14:42 | MHC.PC.OV ---
Vital Signs 06/21/25 14:43 Height 6 ft 3 in Weight 188 lb 4 oz BMI 23.5 BP 132/80 Blood Pressure Location Lt brachial Position Sitting Pulse 58 Pulse Source Pulse Oximeter Temp 97.1 F Temp Source Temporal Artery Scan Pulse Oximetry (%) 97 Oxygen Delivery Method Room Air Intake Visit Reasons: Annual exam Intake Note: Patient is here today for a physical. Canary Raiser Required: No Director Of Broadcast: Not Required per policy Accompanied by: Self / Same As Patient Allergies lisinopril Adverse Reaction (Intermediate, Verified 06/21/25 15:00) Cough indomethacin (From Indocin) Adverse Reaction (Mild, Verified 06/21/25 15:00) Vomiting Medication List - Last Reconciled 06/21/25 by Teto Blake MD atorvastatin 20 mg PO BEDTIME hydrochlorothiazide 25 mg PO DAILY losartan 100 mg PO DAILY Tobacco use date assessed: 06/21/25 Fall risk assessment: No Falls in past year Last assessed Fall Risk: 06/21/25 Dental Screening Dental Screen Date: 12/28/24 HPI HPI Comments History of Present Illness Details History of Present Illness - The patient is a 64 year old male presenting for a physical. - He reports intermittent tingling in two fingers, which he describes as them falling asleep. - He takes his medications daily, including a statin 20 mg, hydrochlorothiazide, and losartan. - His last colonoscopy was in 2023 and he is considered up-to-date. - He declines the flu shot, stating he feels he gets the flu every time he receives the vaccination. - He has reduced his smoking from a pack a day to about half a pack a day by only smoking when he has an urge and keeping cigarettes away from him. - He previously tried a nicotine patch, which he states increased his heart rate and made him feel as if he was having a heart attack. - His last lab work was in December, which showed normal results for anemia and kidney function. 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 - Living Situation: He is and lives with his , who is 62, and their 40-year-old son. - Substance Use: He has reduced his smoking from one pack per day to approximately half a pack per day. - Substance Use: He occasionally uses marijuana. - Substance Use: He reports his last alcoholic beverage was a couple of weeks ago and states he does not drink much. - Functional Status: He denies any limitations in his activities of daily living. - Exercise: He states he gets enough exercise through his work. Results - Labs: Blood work from December was reviewed. - Labs: Anemia panel was normal. - Labs: Kidney function was within range. - Labs: Thyroid function was normal. - Procedures: Colonoscopy was completed in 2023. - Labs: Last prostate check was in 2022. [facility] Medical History (Updated 06/12/24 @ 10:52 by Abeba Lee PA-C) Hypertension Tobacco use disorder Full dentures Phlebitis Surgical History Hx of colonoscopy (~09/06/23) S/P left knee arthroscopy Hx of thumb surgery History of testicular surgery Family History Mother Lymphoma Father History of open heart surgery Social History Housing: Apartment Alcohol intake: current Alcohol intake frequency: a few times a week Alcohol type: hard liquor Patient Tobacco Use Status: Current everyday Tobacco user Tobacco use type: Cigarette Cigarette Packs Per Day: 1 Cigarettes Per Day: 20.0 Years Smoked: 40 e-Cigarette/Vaping Use: Former Use Second Hand Smoke Exposure: Yes service: No Current occupational status: employed 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 1. Little interest or pleasure in doing things: not at all 2. Feeling down, depressed, or hopeless: not at all 3. Trouble falling or staying asleep, or sleeping too much: not at all 4. Feeling tired or having little energy: not at all 5. Poor appetite or overeating: not at all 6. Feeling bad about yourself - or that you are a failure or have let yourself or your family down: not at all 7. Trouble concentrating on things, such as reading the newspaper or watching television: not at all 8. Moving or speaking so slowly that other people could have noticed. Or the opposite - being so fidgety or restless that you have been moving around a lot more than usual: not at all 9. Thoughts that you would be better off or of hurting yourself in some way: not at all Total score: 0 Depression Screening Interpretation: Negative Depression Screening Done: Yes Source: Developed by Drs. Christopher Mckeon, Stefany Castro, Jose Barboza and colleagues, with an educational wilfredo from [email or web address]. Thrive Questionnaire Date Thrive assessed: 12/28/24 I am a: Patient What is your living situation today?: I have a steady place to live Within the past 12 months, did the food you bought not last and you didn't have the money to get more?: Never true Within the past 12 months, did you worry whether your food would run out before you got money to buy more?: Never true Do you have trouble paying for medicines?: No Do you have trouble getting transportation to medical appointments?: No Do you have trouble paying your heating and electricity bill?: No Do you have trouble taking care of your child, family member or friend?: No Do you have trouble with day-to-day activities such as bathing, preparing meals, shopping, managing finances, etc.?: No Are you currently unemployed and looking for a job?: No Are you interested in more education?: Yes Please select the resources that you would like help with: None Currently or been in a relationship where the following occur: No concerns reported THRIVE Score: 0 AUDIT C Alcohol Use Questionnaire (AUDIT-C) 1. How often do you have a drink containing alcohol?: 2-4 times a month 2. How many drinks containing alcohol do you have on a typical day when you are drinking?: 1 or 2 3. How often do you have six or more drinks on one occasion?: Never Total Score: 2 JAZ-7 AMB Questionnaire JAZ-7 Date JAZ - 7 assessed: 12/28/24 Feeling nervous, anxious, or on edge: 0 = Not at all Not being able to stop or control worryin = Not at all Worrying too much about different things: 0 = Not at all Trouble relaxin = Not at all Being so restless that it is hard to sit still: 0 = Not at all Becoming easily annoyed or irritable: 0 = Not at all Feeling afraid as if something awful might happen: 0 = Not at all Total JAZ-7 score (0-4 normal; 5-9 mild; 10-14 moderate; 15-21 severe): 0 Source: Developed by Drs. Christopher Mckeon, Stefany Castro, Jose Barboza and colleagues, with an educational wilfredo from [email or web address]. Review of Systems Narrative Review of Systems - Neurological: Reports intermittent tingling in two fingers. - Ears: Reports tinnitus. - Eyes: Denies seeing halos around lights. - General: Denies any other concerns. Physical exam (Primary Care) Vital Signs: Last Vital Signs Temp 97.1 F 06/21/25 14:43 Pulse 58 06/21/25 14:43 BP 132/80 06/21/25 14:43 Pulse Ox 97 06/21/25 14:43 Oxygen Delivery Method Room Air 06/21/25 14:43 BMI result Body Mass Index 23.5 Tobacco/Smoking Status: Tobacco use Status Tobacco use date assessed 06/21/25 06/21/25 14:47 Patient Tobacco Use Status Current everyday Tobacco 06/21/25 14:47 Tobacco use type Cigarette 06/21/25 14:47 e-Cigarette/Vaping Use Former Use 06/21/25 14:47 PHQ-9: PHQ-9 Score PHQ-9: Total score 0 06/21/25 14:47 Depression Screening Interpretation: Negative Thrive Assessment: Date of Thrive Assessment Date Thrive assessed 12/28/24 06/21/25 14:47 Currently or been in a relationship where the following occur: No concerns reported Narrative Physical Exam General: Appearance normal, both eyes and all related structures Nutritional Appearance: Well nourished Orientation/consciousness: Patient oriented x3 Limitations: No limitations Head: Normal to inspection Neck: Normal visual inspection Chest: Normal palpation of entire chest wall Respiratory: Normal respiratory effort Neurology: Patient oriented x3, reports occasional tingling in two fingers Coding Level of Care Code Est Pt Prev Care 40-64y(43093) Add On Preventative Visit Only Diagnoses Hypertension I10 Annual physical exam Z00.00 Assessment & Plan Assessment & Plan (1) Hypertension: Code(s): I10 - Essential (primary) hypertension Category: Medical (2) Annual physical exam: Code(s): Z00.00 - Encounter for general adult medical examination without abnormal findings Category: Medical Plan Plan - A 90-day prescription for hydrochlorothiazide with one refill was sent to [facility] in [place] on [address]. - The patient will proceed for fasting blood work, which will include a prostate check. - The patient was advised to continue his efforts in smoking cessation, with the current method of reduction appearing effective. - Patient declines influenza vaccination at this time. - Follow-up is scheduled in six months to review lab results and for continued health monitoring. Discussion Notes I have advised the patient to undergo fasting blood work, which is done biannually, and this time it will include a prostate check. I will call him with the results. We discussed his smoking habits, and I affirmed that his current method of gradual reduction by smoking only at the time of an urge is a very good approach. I refilled his prescription for hydrochlorothiazide for 90 days with one refill. The patient remains up-to-date on his colonoscopy. He declined the flu shot due to past adverse reactions. The patient is to follow up in six months. Patient Instructions - Your prescription for hydrochlorothiazide has been sent to the [facility] pharmacy on [address] in [place]. - Please go for your fasting blood test. - Do not eat anything after midnight before your blood test. - I will call you with the results of your blood work. - Please schedule a follow-up appointment to see me in six months. Orders: Orders Liver Panel Today I10 - Essential (primary) hypertension Thyroid Stimulating Hormone Today I10 - Essential (primary) hypertension Prostate Specific Antigen Scr Today I10 - Essential (primary) hypertension Basic Metabolic Panel Today I10 - Essential (primary) hypertension Complete Blood Count no Diff Today I10 - Essential (primary) hypertension Lipid Panel Today I10 - Essential (primary) hypertension UA and rflx microscopic Today I10 - Essential (primary) hypertension Medications: Refilled hydrochlorothiazide 25 mg PO DAILY 90 tabs 1RF
[2025-06-21 14:43] VITALS: BP 132/80; PULSE 58; TEMP 36.2; O2SAT 97; BMI 23.5
== END 2025-06-21 15:01 | disposition home or self-care (01) ==
LOC: HO.HMCH 14:24
PROVIDERS: PCP Internal Medicine; Visit Provider Internal Medicine
DX: Z00.00 Encounter for general adult medical examination without abnormal findings (principal); I10 Essential (primary) hypertension

== ENCOUNTER 2025-06-23 09:58 | Outpatient (REF) | payer OTHER, SELFPAY ==
[2025-06-23 11:46] LABS: Hematocrit 45.0 % (42.0-52.0); Hemoglobin 15.2 g/dl (14.0-18.0); Mean Corpuscular HGB Conc 33.8 g/dl (31.0-36.0); Mean Corpuscular Hemoglobin 31.4 pg (27.0-33.0); Mean Corpuscular Volume 93.0 fL (80.0-98.0); NRBC Abs Auto 0.000 X10*3/uL (0.0-0.012); NRBC Pct Auto 0.0 /100WBC (0.0-0.2); Platelet Count 249 X10*3/uL (160-400); Red Blood Count 4.84 X10*6/uL (4.60-5.80); White Blood Count 6.7 X10*3/uL (4.8-10.8)
[2025-06-23 12:04] LABS: Appearance Urine Clear; Glucose Urine UA Negative (Negative); PH 6.0 (5.0-9.0); Specific Gravity - Urine 1.020 (1.005-1.025)
[2025-06-23 12:13] LABS: Alanine Aminotransferase 34 U/L (0-40); Albumin Level 4.5 g/dL (3.5-5.0); Alkaline Phosphatase 70 U/L (39-117); Anion Gap 10 (12-20); Aspartate Amino Transferase 34 U/L (5-37); Blood Urea Nitrogen 18 mg/dL (9-16); Calcium 9.6 mg/dL (8.4-10.2); Carbon Dioxide 30 mmol/L (22-29); Chloride 105 mmol/L (96-108); Cholesterol 128 mg/dL (<200); Estimated Glomerular Filt Rate > 60; HDL Cholesterol 58 mg/dL (>40); Potassium 4.7 mmol/L (3.3-5.1); Sodium 140 mmol/L (135-145); Total Protein 7.3 g/dL (6.5-8.0); Triglycerides 71 mg/dL (<150)
[2025-06-23 12:29] LABS: Thyroid Stimulating Hormone 0.68 uIU/mL (0.32-4.0)
== END 2025-06-23 09:59 | disposition home or self-care (01) ==
LOC: HO.HMGCLDS 09:58
PROVIDERS: PCP Internal Medicine; Visit Provider Internal Medicine
DX: I10 Essential (primary) hypertension (principal); Z12.5 Encounter for screening for malignant neoplasm of prostate
CPT/HCPCS: 36415; 80048; 80061; 80076; 81003; 84153; 84443; 85027